=== PATIENT | female | born 2000 | race Two or more races ===

== ENCOUNTER 2024-07-05 13:19 | Emergency (ER) | payer MEDICAID, SELFPAY ==
[2024-07-05 13:32] VITALS: BP 104/70; PULSE 80; RESP 16; TEMP 36.8; O2SAT 99; BMI 17.9
--- NOTE | 2024-07-05 13:37 | XR_ITS ---
Examination: CT abdomen and pelvis without contrast. Coronal 3-D reconstructions. Sagittal 2-D reconstructions. Date and time of exam:July 05, 2024 1541 hrs. Indications: Left flank pain beginning 3 weeks ago Comparison: May 07, 2023 CTDI: vol (mGy): 4.89 DLP: (mGycm): 230 Technique: Axial images of the abdomen have been obtained, 3 mm slice thickness Intravenous contrast material has not been administered. Low dose protocols were performed. One or more of the following dose reduction techniques were used; automated exposure control, adjustment of the mA and/or KV according to patient size, use of iterative reconstruction technique. Findings: No focal liver or splenic lesions No gallstones No pancreatic mass Bilateral hyperdense renal pyramids with no hydronephrosis or ureteral calculi Aorta normal size Small lymph nodes in the right lower mesentery No pericecal inflammatory change No bowel obstruction Ovaries appear prominent bilaterally No bladder mass The osseous structures are intact Impression: Bilateral subtle nephrocalcinosis, no hydronephrosis or ureteral calculi No CT findings of appendicitis bowel obstruction or diverticulitis No bladder mass or bladder calculi
--- NOTE | 2024-07-05 13:38 | PD.EDRME ---
Rapid Medical Screening Exam RME Arrival date/time: 07/05/24 13:19 24-year-old female presents to the emergency department complaints of left flank pain patient reports history of renal stent placement on the right side patient also reports recently she was diagnosed with kidney stone and a UTI currently taking Keflex 4 times a day patient reports pain has worsened Chief Complaint: Urogenital-Female Time Seen by Provider: 07/05/24 13:29 Vital signs: Vital Signs Temperature 98.3 F 07/05/24 13:32 Pulse Rate 80 07/05/24 13:32 Respiratory Rate 16 07/05/24 13:32 Blood Pressure 104/70 07/05/24 13:32 Pulse Oximetry (%) 99 07/05/24 13:32 Oxygen Delivery Method Room Air 07/05/24 13:32
[2024-07-05] MEDS: HYDROcodone/APAP 5/325 TABLET 1 TAB PO (13:47)
[2024-07-05] MEDS: KETOROLAC INJ 30 MG/ML VIAL IM (13:47)
[2024-07-05 14:03] LABS: Basophils % (Auto) 1 % (0-2.5); Eosinophils # (Auto) 0.1 Thou/mm3 (0.0-0.5); Eosinophils % (Auto) 1 % (0-10); Hematocrit 40.4 % (36.0-46.0); Immature Granulocytes % (Auto) 0 % (0-0); Immature Granulocytes Auto 0.01 Thou/mm3 (0.00-0.00); Lymphocytes # (Auto) 1.6 Thou/mm3 (1.0-4.8); Lymphocytes % (Auto) 34 % (10-50); Mean Corpuscular HGB Conc 34.7 g/dl (31.0-37.0); Mean Corpuscular Hemoglobin 33.2 pg (25.0-35.0); Mean Corpuscular Volume 96 fL (80-100); Monocytes # (Auto) 0.4 Thou/mm3 (0.0-0.8); Monocytes % (Auto) 9 % (0-12); Neutrophils # (Auto) 2.5 Thou/mm3 (1.8-7.7); Neutrophils % (Auto) 54 % (37-80); Nucleated Red Blood Cell % 0 /100 WBC (0); Platelet Count 236 Thou/mm3 (140-440); RDW Standard Deviation 42.5 fL (36.4-46.3); Red Blood Count 4.22 Miln/mm3 (4.00-5.20); White Blood Count 4.5 Thou/mm3 (3.6-11.0)
[2024-07-05 14:30] LABS: Alanine Aminotransferase < 7 U/L (10-49); Albumin/Globulin Ratio 1.8 (1.2-2.2); Alkaline Phosphatase 62 U/L (46-116); Anion Gap 7 (7-16); Aspartate Amino Transferase 14 U/L (0-34); BUN/Creatinine Ratio 18 Ratio (12-20); Bilirubin,Total 0.8 mg/dL (0.3-1.2); Blood Urea Nitrogen 11 mg/dL (9-23); Calcium 9.7 mg/dL (8.3-10.6); Calcium (Corrected) 9.7 mg/dL (8.5-10.1); Chloride 105 mMol/L (98-107); Creatinine (Component) 0.6 mg/dL (0.6-1.3); Estimated Creatinine Clearance 107.6 mL/min (>60); Globulin 2.8 gm/dL (2.3-3.5); Glucose 102 mg/dL (74-106); Lipase 37 U/L (12-53); Osmolality,Calculated 275 (275-295); Potassium 4.4 mMol/L (3.4-5.1); Sodium 138 mMol/L (136-145); Total Protein 7.8 gm/dL (5.7-8.2); eGFR > 60 See Note
[2024-07-05 14:41] LABS: Collection Type, Urine Clean Catch; Squamous Epithelial Cell,Urine 0 /hpf (0-5); WBC,Urine 0 /hpf (0-5)
[2024-07-05 14:51] LABS: HCG Qualitative,Urine Negative
[2024-07-05 15:07] LABS: RBC,Urine 2 /hpf (0-3)
--- NOTE | 2024-07-05 15:17 | EDNOTE_ITS ---
ED Female Urogenital RME/HPI General Chief complaint: Urogenital-Female Stated complaint: LEFT KIDNEY STONE PAIN; SEEN BY OTHER ER 06/28/24 Time Seen by Provider: 07/05/24 13:29 Arrival date/time: 07/05/24 13:19 RME / HPI RME / HPI Narrative: 24-year-old female presents to the emergency department complaints of left flank pain patient reports history of renal stent placement on the right side patient also reports recently she was diagnosed with kidney stone and a UTI currently taking Keflex 4 times a day patient reports pain has worsened. Denies any vomiting. Denies any fever. Denies any other complaints. No medication was taken prior to arrival. Related Data Previous Rx's ?Medication ?Instructions ?Recorded promethazine 25 mg tablet 25 mg PO Q6H PRN nausea and 11/19/22 vomiting #20 tabs Allergies Allergy/AdvReac Type Severity Reaction Status Date / Time vancomycin Allergy Mild Redness of Verified 07/05/24 13:21 Skin Review of Systems Review of Systems Narrative Review of Systems: Review of system reviewed and within normal limits except mentioned in HPI ED Exam Narrative Physical exam: VITAL SIGNS: Reviewed. GENERAL APPEARANCE: Alert and interactive, follows commands, no acute distress, HEAD AND FACE: Non-traumatic. ENT: PERRL, pink conjunctivitis, eyelid no trauma, Mucous membrane moist. NECK: Supple, nontender, no nuchal rigidity. CHEST: No tenderness, no crepitus, no paradoxical movement, no retractions. LUNGS: Clear, well ventilated, symmetric, no rales, no wheezing, no ronchi, no stridor, good breath sounds bilaterally. HEART: Regular rate, regular rhythm, no murmur, no gallops. ABDOMEN: Soft, positive bowel sounds, nondistended, no guarding, nontender, no rebound, no masses, RECTAL: Deferred. GENITAL: Deferred. NEUROLOGICAL: Gross motor function intact sensory function intact, Appropriate for age. MUSCULOSKELETAL: low back nontender, full range of motion. EXTREMITIES: Nontender, full range of motion. SKIN: Color pink, dry, no rash, no lacerations, no abrasions, no contusions. LYMPHATICS: Deferred. Course Quality Measures none Orders Category Date Time Status CT abdomen pelvis wo con Stat Exams 07/05/24 13:37 Completed CBC Stat Lab 07/05/24 13:53 Completed Comprehensive Metabolic Panel Stat Lab 07/05/24 13:53 Completed HCG Qualitative,Urine Stat Lab 07/05/24 14:00 Completed Lipase Stat Lab 07/05/24 13:53 Completed UA, C/S IF [Urinalysis, C/S if Indicated] Stat Lab 07/05/24 14:00 Completed Urine Culture Stat Lab 07/05/24 14:00 Received HYDROcodone*/APAP 5/325 [[place] 5/325] Med 07/05/24 13:37 Discontinued 1 tab PO X1 ONE Ketorolac Inj [Toradol Inj] Med 07/05/24 13:38 Discontinued 30 mg IM X1 ONE Vital Signs Vital signs: Vital Signs Temperature 98.3 F 07/05/24 13:32 Pulse Rate 80 07/05/24 13:32 Respiratory Rate 16 07/05/24 13:32 Blood Pressure 104/70 07/05/24 13:32 Pulse Oximetry (%) 99 07/05/24 13:32 Oxygen Delivery Method Room Air 07/05/24 13:32 Urogenital - Female MDM Narrative MDM Narrative:: 24-year-old female presents to the emergency department complaints of left flank pain patient reports history of renal stent placement on the right side patient also reports recently she was diagnosed with kidney stone and a UTI currently taking Keflex 4 times a day patient reports pain has worsened. Denies any vomiting. Denies any fever. Denies any other complaints. No medication was taken prior to arrival. Patient's workup including urinalysis negative for abnormality. CT scan of the abdomen also came back with no acute problem noted. Results discussed with the patient. Patient told me that his pain is gone after patient received Toradol and [place]. Patient data External records reviewed:: None Clinical information provided by:: patient Social determinants that could affect healthcare access:: none Patient has the following chronic illnesses:: None How is presenting disease/condition affected by chronic disease/condition?: no chronic disease Evaluation data The following diagnostics were reviewed and interpreted by me:: lab results and radiology exam(s) Lab and/or radiology exams considered but not ordered:: None Interpretation Summary: Laboratory workup came back unremarkable urinalysis no UTI. CT scan of the abdomen also came back with no acute pathology. Results discussed with the patient Medications / Prescriptions Medications or Prescriptions considered but not ordered:: None Medication administrations:: Medication Administration History Discontinued Medications Hydrocodone Bitart/Acetaminophen (Hydrocodone/Apap 5/325 Tablet) 1 tab PO X1 ONE Stop: 07/05/24 13:38 Last Admin: 07/05/24 13:47 Dose: 1 tab Documented By: Ketorolac Tromethamine (Ketorolac Inj 30 Mg/Ml Vial) 30 mg IM X1 ONE Stop: 07/05/24 13:39 Last Admin: 07/05/24 13:47 Dose: 30 mg Documented By: [place] Toradol Consultations Consultation(s) initiated? (list below): No Diagnosis Urogenital Female Differential Diagnosis: urinary tract infection, ovarian cyst and other (Renal colic) Most likely diagnosis given after review of the tests above:: Flank pain Admission Indicated Admission indicated?: not indicated Explain why admission is indicated or not indicated:: Stable Admission Request Was there a request for admission?: No Disposition Plan Disposition Plan: Discharge Discharge Attestation Discharge Attestation: The patient was given an opportunity to ask questions and understood the discharge instructions. Discharge instructions specifically effects, indications for sooner follow up or return to the emergency department, and the expected course of current diagnosis. Patient condition: Stable Discharge Plan Plan Patient Disposition: HOME (Self Care) Disposition Comment: stable Prescriptions/Referrals Prescriptions/Med Rec: No Action promethazine 25 mg tablet 25 mg PO Q6H PRN (Reason: nausea and vomiting) Qty: 20 0RF Referrals: Hank Felix MD [Primary Care Provider] - In 1 week Problem List Clinical Impression: Flank pain Patient/Caregiver Discharge Instructions Discharge Activity: activity as tolerated Education Materials: Understanding the Pain Response Additional Instructions: Thank you for the opportunity for serving you today. You are stable for discharged . You are advised to: Follow-up with your PCP in 1 to 2 days Return to ED for worsening of symptoms Increase oral fluids Continue or finish your antibiotic you are currently taking right now for UTI. Continue taking Motrin or ibuprofen for your pain, Print Language: Bulgarian Stand Alone Forms: Cleo Award Info., Patient Portal Info Letter PA/PRIYANKA Supervising Physician PA/PRIYANKA Supervising Physician: MD Helene
[2024-07-05 15:26] LABS: Bilirubin,Urine Negative (Negative); Blood,Urine 1+ (Negative); Clarity,Urine Clear (Clear/Hazy); Color,Urine Lt Yellow (Lt Yel-Yel); Glucose, Urine Negative (Negative); Ketones,Urine Negative (Negative); Leukocyte Esterase,Urine 1+ (Negative); Nitrite,Urine Negative (Negative); Protein,Urine Negative (Neg - Trace); Specific Gravity,Urine >= 1.030 (1.001-1.035); Urobilinogen,Urine 0.2 mg/dL (0.0-1.0)
[2024-07-05 15:39] LABS: Culture Indicated,Urine Not Indicated
[2024-07-05 16:13] VITALS: BP 108/73; PULSE 65; RESP 16; TEMP 37.1; O2SAT 99
== END 2024-07-05 17:45 | disposition home or self-care (01) ==
PROVIDERS: Nurse Practitioner Primary Care; Emergency Provider Emergency Medicine; PCP Family Medicine
DX: R10.9 Unspecified abdominal pain (principal)
CPT/HCPCS: 36415; 74176; 80053; 81001; 81025; 83690; 85025; 87086; 96372; 99284; J1885; A9270

== ENCOUNTER 2024-07-07 21:13 | Emergency (ER) | payer MEDICAID, SELFPAY ==
[2024-07-07 21:14] VITALS: BP 118/78; PULSE 115; RESP 20; TEMP 37.6; O2SAT 100; BMI 18.8
--- NOTE | 2024-07-07 22:00 | PD.EDRME ---
Rapid Medical Screening Exam RME Arrival date/time: 07/07/24 21:13 24-year-old female recently diagnosed with kidney stone and UTI presents emergency department complaining of left flank pain, fever, and headache. Chief Complaint: Urogenital-Female Time Seen by Provider: 07/07/24 21:33 Vital signs: Vital Signs Temperature 99.6 F 07/07/24 21:14 Pulse Rate 115 H 07/07/24 21:14 Respiratory Rate 20 07/07/24 21:14 Blood Pressure 118/78 07/07/24 21:14 Pulse Oximetry (%) 100 07/07/24 21:14 Oxygen Delivery Method Room Air 07/07/24 21:14 Vital signs reviewed by provider: Yes
[2024-07-07] MEDS: KETOROLAC INJ 60 MG/2 ML VIAL 30 MG IM (22:17)
[2024-07-07 22:21] LABS: Collection Type, Urine Clean Catch
[2024-07-07 22:23] LABS: Basophils % (Auto) 0 % (0-2.5); Eosinophils % (Auto) 0 % (0-10); Hemoglobin 13.6 g/dL (12.0-16.0); Immature Granulocytes % (Auto) 0 % (0-0); Immature Granulocytes Auto 0.02 Thou/mm3 (0.00-0.00); Lymphocytes # (Auto) 0.5 Thou/mm3 (1.0-4.8); Lymphocytes % (Auto) 5 % (10-50); Mean Corpuscular HGB Conc 34.9 g/dl (31.0-37.0); Mean Corpuscular Hemoglobin 32.9 pg (25.0-35.0); Mean Corpuscular Volume 94 fL (80-100); Monocytes # (Auto) 0.5 Thou/mm3 (0.0-0.8); Monocytes % (Auto) 6 % (0-12); Neutrophils # (Auto) 8.1 Thou/mm3 (1.8-7.7); Neutrophils % (Auto) 88 % (37-80); Nucleated Red Blood Cell % 0 /100 WBC (0); Platelet Count 219 Thou/mm3 (140-440); RDW Standard Deviation 42.6 fL (36.4-46.3); Red Blood Count 4.13 Miln/mm3 (4.00-5.20); White Blood Count 9.2 Thou/mm3 (3.6-11.0)
[2024-07-07 22:38] LABS: Bacteria,Urine Rare; Bilirubin,Urine Negative (Negative); Blood,Urine 2+ (Negative); Clarity,Urine Clear (Clear/Hazy); Color,Urine Lt-Yellow (Lt Yel-Yel); Culture Indicated,Urine Not Indicated; Glucose, Urine Negative (Negative); Hyaline Casts,Urine < 1 /hpf (0-1); Ketones,Urine 2+ (Negative); Leukocyte Esterase,Urine Positive (Negative); Nitrite,Urine Negative (Negative); Protein,Urine Trace (Neg - Trace); RBC,Urine 5 /hpf (0-3); Specific Gravity,Urine 1.026 (1.001-1.035); Squamous Epithelial Cell,Urine 6 /hpf (0-5); Urobilinogen,Urine Negative mg/dL (0.0-1.0); WBC,Urine 9 /hpf (0-5)
[2024-07-07 22:41] LABS: HCG,Qualitative Serum Negative
[2024-07-07 22:56] LABS: Alanine Aminotransferase < 7 U/L (10-49); Albumin, Serum 5.1 gm/dL (3.5-5.0); Albumin/Globulin Ratio 1.8 (1.2-2.2); Alkaline Phosphatase 70 U/L (46-116); Anion Gap 12 (7-16); Aspartate Amino Transferase 16 U/L (0-34); BUN/Creatinine Ratio 17 Ratio (12-20); Bilirubin,Total 0.7 mg/dL (0.3-1.2); Blood Urea Nitrogen 12 mg/dL (9-23); Calcium 9.4 mg/dL (8.3-10.6); Calcium (Corrected) 9.4 mg/dL (8.5-10.1); Carbon Dioxide 20.9 mMol/L (20.0-31.0); Chloride 104 mMol/L (98-107); Creatinine (Component) 0.7 mg/dL (0.6-1.3); Estimated Creatinine Clearance 90.6 mL/min (>60); Globulin 2.8 gm/dL (2.3-3.5); Glucose 104 mg/dL (74-106); Lipase 42 U/L (12-53); Osmolality,Calculated 273 (275-295); Sodium 137 mMol/L (136-145); Total Protein 7.9 gm/dL (5.7-8.2); eGFR > 60 See Note
[2024-07-07 23:34] LABS: Amphetamine/Methamp Scrn,U Negative (Negative); Barbiturate Screen,Urine Negative (Negative); Benzodiazepines Screen,Urine Negative (Negative); Benzoylecgonine Screen, Ur Negative (Negative); Fentanyl Screen,Urine Negative (Negative); Opiate Screen,Urine Negative (Negative); THC Screen,Urine Positive (Negative)
--- NOTE | 2024-07-07 23:46 | PD.EDFMALE ---
ED Female Urogenital RME/HPI General Chief complaint: Urogenital-Female Stated complaint: L FLANK PAIN, DX WITH KIDNEY STONE 06/28/24 Time Seen by Provider: 07/07/24 21:33 Source: patient Arrival date/time: 07/07/24 21:13 24-year-old female recently diagnosed with kidney stone and UTI presents emergency department complaining of left flank pain, fever, and headache. Mode of arrival: ambulatory Limitations: no limitations RME / HPI RME / HPI Narrative: 07/07/24 21:13 24-year-old female recently diagnosed with kidney stone and UTI presents emergency department complaining of left flank pain, fever, and headache. Related Data Previous Rx's ?Medication ?Instructions ?Recorded promethazine 25 mg tablet 25 mg PO Q6H PRN nausea and 11/19/22 vomiting #20 tabs Allergies Allergy/AdvReac Type Severity Reaction Status Date / Time vancomycin Allergy Mild Redness of Verified 07/07/24 21:17 Skin Review of Systems Review of Systems Systems Reviewed: All systems reviewed, normal except as documented Constitutional Constitutional: Reports system reviewed and no additional complaints, except as documented, Denies body ache(s), Denies chills, Reports fever(s) and Reports headache(s) Eyes Eyes: Reports system reviewed and no additional complaints, except as documented and Denies change in vision ENT Ears, Nose, Mouth, and Throat: Reports system reviewed and no additional complaints, except as documented, Denies disequilibrium, Denies dizziness, Reports headache(s), Denies sore throat and Denies vertigo Cardiovascular Cardiovascular: Reports system reviewed and no additional complaints, except as documented, Denies chest pain and Denies dyspnea Respiratory Respiratory: Reports system reviewed and no additional complaints, except as documented, Denies chest congestion, Denies cough and Denies dyspnea Gastrointestinal Gastrointestinal: Reports system reviewed and no additional complaints, except as documented, Denies abdominal pain, Denies nausea and Denies vomiting Musculoskeletal Musculoskeletal: Reports system reviewed and no additional complaints, except as documented, Denies abnormal gait, Denies arthralgias and Reports back pain Integumentary/Breasts Skin/Breast: Reports system reviewed and no additional complaints, except as documented, Denies erythema, Denies rash and Denies wounds Neurologic Neurologic: Reports system reviewed and no additional complaints, except as documented, Denies abnormal gait, Denies disequilibrium, Denies dizziness, Reports headache(s) and Denies vertigo Past Medical History Past Medical History NEUROLOGIC: Negative Neurological Disorders or Seizures CARDIAC: Negative Cardiac Disorders or Congestive Heart Failure RESPIRATORY: Negative Chronic Obstructive Pulmonary Disease (COPD) or Asthma GASTROINTESTINAL: Negative Gastrointestinal Disorders GENITOURINARY: Positive Kidney Stones; Negative Renal Disease REPRODUCTIVE: Positive Previous Pregnancies MUSCULOSKELETAL: Negative Musculoskeletal Disorders ENDOCRINE: Negative Endocrine Disorders, Diabetes Mellitus Type 1 or Diabetes Mellitus Type 2 HEMATOLOGIC: Negative Blood Disorders or Sickle Cell Disease OTHER HISTORY: Positive Hospitalization; Negative Autoimmune Disease, Blood Transfusions, Blood Transfusion Reaction, Anesthesia Reactions, Organ Transplant, MRSA, Clostridium Difficile or Cancer Family History FAMILY HISTORY: Negative Family Psychiatric Problems, Family Respiratory Disorders, Family Cardiac Disorders, Family Gastrointestinal Problems, Family Cancer, Family Surgery or Family Anesthesia Reaction Surgical History SURGICAL: Positive Abdominal Surgery; Negative Cardiac Surgery, Endocrine Surgery, Ear Surgery, Nephrectomy, Joint Replacement, Neurologic Surgery, Mastectomy, Vasectomy or Organ Transplant Social History SMOKING STATUS: Never smoker ED Exam General Limitations: Present no limitations General appearance: Present alert and in no apparent distress Head Head exam: Present atraumatic Eye Eye exam: Present normal appearance, PERRL and EOMI ENT ENT exam: Present normal exam, normal oropharynx and mucous membranes moist Neck Neck exam: Present normal inspection, full ROM and trachea midline Chest Chest inspection: Present normal inspection and symmetric chest wall rise Respiratory Respiratory exam: Present normal lung sounds bilaterally Cardiovascular Cardiovascular exam: Present regular rate, normal rhythm and normal heart sounds Abdominal Exam Abdominal exam: Present soft and normal bowel sounds Extremities Exam Extremities exam: Present normal inspection and full ROM Back Exam Back exam: Present normal inspection and full ROM Neurological Exam Neurological exam: Present alert, oriented X3 and CN II-XII intact Psychiatric Psychiatric exam: Present normal affect and normal mood Skin Skin exam: Present warm, dry, intact and normal color Course Quality Measures none Orders Category Date Time Status Bedside Influenza A&B Antigen Test NOW Care 07/07/24 21:59 Active CBC Stat Lab 07/07/24 22:12 Completed CMP [Comprehensive Metabolic Panel] Stat Lab 07/07/24 22:12 Completed Drug Screen,Urine Stat Lab 07/07/24 22:13 Completed HCG,Qualitative Serum Stat Lab 07/07/24 22:12 Completed Lipase Stat Lab 07/07/24 22:12 Completed Urinalysis, C/S if Indicated Stat Lab 07/07/24 22:13 Completed 1,000 mg IM w/Lido* 1% Med 07/07/24 23:50 Ordered cefTRIAXone [Rocephin] 1,000 mg Lidocaine 1% 20 ml [Xylocaine 1% 20 ML] 2.1 ml IM X1 Ketorolac Inj [Toradol Inj] Med 07/07/24 21:58 Discontinued 30 mg IM X1 ONE Vital Signs Vital signs: Vital Signs Temperature 99.6 F 07/07/24 21:14 Pulse Rate 115 H 07/07/24 21:14 Respiratory Rate 20 07/07/24 21:14 Blood Pressure 118/78 07/07/24 21:14 Pulse Oximetry (%) 100 07/07/24 21:14 Oxygen Delivery Method Room Air 07/07/24 21:14 100% room air within normal limits Urogenital - Female MDM Narrative MDM Narrative:: 24-year-old female recently diagnosed with kidney stone and UTI presents emergency department complaining of left flank pain, fever, and headache. CBC unremarkable for any leukocytosis or anemia. CMP is unremarkable for any elevated LFTs. Urinalysis positive for leukocytes, RBCs, and WBCs. Patient reports currently taking cephalexin antibiotic for UTI. Patient reports has follow-up with primary care provider tomorrow regarding UTI. Will give patient IM Rocephin and instructed continue taking cephalexin. Patient appears nontoxic and is hemodynamically stable. Patient reports significant improvement in pain after Toradol injection. Patient data External records reviewed:: [facility] previous records Clinical information provided by:: patient Social determinants that could affect healthcare access:: none Patient has the following chronic illnesses:: None How is presenting disease/condition affected by chronic disease/condition?: no chronic disease Evaluation data The following diagnostics were reviewed and interpreted by me:: lab results Lab and/or radiology exams considered but not ordered:: Ordered Interpretation Summary: Interpreted by me Medications / Prescriptions Medications or Prescriptions considered but not ordered:: Ordered Medication administrations:: Medication Administration History Discontinued Medications Ketorolac Tromethamine (Ketorolac Inj 60 Mg/2 Ml Vial) 30 mg IM X1 ONE Stop: 07/07/24 21:59 Last Admin: 07/07/24 22:17 Dose: 30 mg Documented By: EDWARD Given Consultations Consultation(s) initiated? (list below): No Diagnosis Urogenital Female Differential Diagnosis: urinary tract infection, cystitis and other (Kidney stone) Most likely diagnosis given after review of the tests above:: UTI Admission Indicated Admission indicated?: not indicated Admission Request Was there a request for admission?: No Disposition Plan Disposition Plan: Discharge Discharge Attestation Discharge Attestation: The patient and all family members were given an opportunity to ask questions and understood the discharge instructions. Discharge instructions specifically effects, indications for sooner follow up or return to the emergency department, and the expected course of current diagnosis. Patient condition: Stable Discharge Plan Plan Patient Disposition: HOME (Self Care) Disposition Comment: Stable Prescriptions/Referrals Prescriptions/Med Rec: No Action promethazine 25 mg tablet 25 mg PO Q6H PRN (Reason: nausea and vomiting) Qty: 20 0RF Referrals: Hank Felix MD [Primary Care Provider] - In 1 week Problem List Clinical Impression: Urinary tract infection Patient/Caregiver Discharge Instructions Discharge Activity: activity as tolerated Education Materials: ED CYSTITIS Female Adult Additional Instructions: Increase fluids as tolerated. Take ibuprofen as present prescribed your provider as needed for pain. Continue taking cephalexin and complete as prescribed by your primary care provider for UTI. Keep follow-up with your primary care provider tomorrow as discussed. Return to emergency department for any worsening symptoms or as needed. Print Language: [place]ican Stand Alone Forms: Cleo Award Info., Patient Portal Info Letter SILVANO/PRIYANKA Supervising Physician SILVANO/PRIYANKA Supervising Physician: Dr. Rolon
[2024-07-08] MEDS: cefTRIAXone 1,000 MG, LIDOCAINE 1% 20 ML 2.1 ML IM (00:08)
== END 2024-07-08 00:55 | disposition home or self-care (01) ==
PROVIDERS: Emergency Provider Emergency Medicine; PCP Family Medicine
DX: N39.0 Urinary tract infection, site not specified (principal)
CPT/HCPCS: 36415; 80053; 80307; 81001; 83690; 84703; 85025; 96372; 99283; J0696; J1885; J3490